=== PATIENT | male | born 1960 | race Caucasian/White ===

== ENCOUNTER → 2023-02-17 | Outpatient (CLI) | payer OTHER | END | disposition home or self-care (01) | LOC: LAB 17:54 → LAB SHORT 17:54 | DX: H10.33 Unspecified acute conjunctivitis, bilateral (principal) | CPT/HCPCS: 87070; 87205 ==

== ENCOUNTER → 2024-03-10 | Outpatient (CLI) | payer OTHER | LOC: PLD 07:58 → LAB SHORT 07:58 | DX: R21 Rash and other nonspecific skin eruption (principal) | CPT/HCPCS: 88312 ==